=== PATIENT | male | born 1940 | race Caucasian/White ===

== ENCOUNTER 2016-12-20 21:08 | Inpatient (IN) | payer MEDICARE, OTHER ==
[~2016-12-20] VITALS: Ht 177.8 cm; Wt 90.0 kg
[2016-12-20 21:53] LABS: HEMOGLOBIN 13.6 gm/dl (14.0-17.5); RED BLOOD COUNT 4.63 M/UL (4.20-5.50); WHITE BLOOD COUNT 13.4 K/UL (4.5-11.0)
[2016-12-21] MEDS ORDERED: NEXIUM20 MG PO (00:46)
[2016-12-21] MEDS ORDERED: LIPITOR TAB 2020 MG PO (00:47)
[2016-12-21] MEDS ORDERED: BUMETANIDE2 MG PO (00:47)
[2016-12-21] MEDS ORDERED: ALDACTONE25 MG PO (00:47)
[2016-12-21] MEDS ORDERED: SYNTHROID 125125 MCG PO (00:49)
[2016-12-21] MEDS ORDERED: FLORINEF 0.1 M0.1 MG PO (00:49)
[2016-12-21] MEDS ORDERED: ZANTAC300 MG PO (00:50)
[2016-12-21] MEDS ORDERED: DIGITEK125 MCG PO (00:51)
[2016-12-21] MEDS ORDERED: MEDI-LYTE TABL1 EACH PO (00:51)
[2016-12-21] MEDS ORDERED: NOVOLOG MI100 UNIT/1 SQ (00:54)
[2016-12-21] MEDS ORDERED: NORCO 7.5-3251 EACH PO (00:55)
[2016-12-21] MEDS ORDERED: COUMADIN4 MG PO (00:55)
[2016-12-21] MEDS ORDERED: AMBIEN10 MG PO (00:56)
[2016-12-22 04:22] LABS: HEMOGLOBIN 12.2 gm/dl (14.0-17.5); RED BLOOD COUNT 4.25 M/UL (4.20-5.50); WHITE BLOOD COUNT 9.8 K/UL (4.5-11.0)
[2016-12-26] MEDS ORDERED: AUGMENTIN TAB875 MG PO (12:15)
[2016-12-26] MEDS ORDERED: ASPIR 8181 MG PO (12:16)
[2016-12-26] MEDS ORDERED: COREG 3.125M3.125 MG PO (12:19)
[2016-12-26] MEDS ORDERED: LISINOPRIL2.5 MG PO (12:26)
== END 2016-12-26 16:05 | disposition home or self-care (01) | DRG 871 ==
LOC: ER1 21:08 → CCU 23:45 → PROG CARE 23:45 → ZEROF 23:45 → CCU 12-21 00:46 → PROG CARE 12-22 20:57
PROVIDERS: Emergency Medicine; Internal Medicine; ADMIT Internal Medicine
DX: A41.9 Sepsis, unspecified organism (principal); J18.9 Pneumonia, unspecified organism; J96.01 Acute respiratory failure with hypoxia; I50.23 Acute on chronic systolic (congestive) heart failure; D68.4 Acquired coagulation factor deficiency; I48.2 Chronic atrial fibrillation; I25.5 Ischemic cardiomyopathy; I11.0 Hypertensive heart disease with heart failure; I25.10 Atherosclerotic heart disease of native coronary artery without angina pectoris; I48.0 Paroxysmal atrial fibrillation; E87.6 Hypokalemia; I95.1 Orthostatic hypotension; T45.515A Adverse effect of anticoagulants, initial encounter; J44.9 Chronic obstructive pulmonary disease, unspecified; I51.3 Intracardiac thrombosis, not elsewhere classified; E11.9 Type 2 diabetes mellitus without complications; E03.9 Hypothyroidism, unspecified; I73.9 Peripheral vascular disease, unspecified; I08.1 Rheumatic disorders of both mitral and tricuspid valves; I25.2 Old myocardial infarction; Z95.1 Presence of aortocoronary bypass graft; Z85.118 Personal history of other malignant neoplasm of bronchus and lung; Z87.891 Personal history of nicotine dependence; Z95.810 Presence of automatic (implantable) cardiac defibrillator; Z92.3 Personal history of irradiation; Z91.14 Patient's other noncompliance with medication regimen; Z79.01 Long term (current) use of anticoagulants; Z79.4 Long term (current) use of insulin; Z79.891 Long term (current) use of opiate analgesic; Z79.899 Other long term (current) drug therapy; Z98.890 Other specified postprocedural states; Z82.49 Family history of ischemic heart disease and other diseases of the circulatory system
CPT/HCPCS: ECHO; 36415; 36600; 71010; 80048; 80053; 80076; 80162; 81001; 82550; 82553; 82803; 82962; 83735; 83880; 84132; 84439; 84443; 84484; 85025; 85610; 85730; 87040; 87070; 87205; 93005; 93306; 94640; 94660; 94664; 96374; 96375; 99291; J1650; J1815; J1817; J1940; J1956